=== PATIENT | male | born 1995 | race Caucasian/White ===

== ENCOUNTER 2017-01-25 01:24 | Emergency (ER) | payer OTHER ==
[2017-01-25 01:31] VITALS: BP 118/70; PULSE 84; RESP 18; TEMP 98.9
--- NOTE | 2017-01-25 01:39 | ED ---
Upper Extremity HPI - General Chief Complaint: Extremity Injury, Upper Stated Complaint: wrist pain Time Seen by Provider: 01/25/17 01:35 Source: patient, RN notes reviewed, old records reviewed Mode of arrival: ambulatory Limitations: no limitations - History of Present Illness Initial Comments: This is a 21-year-old male presents emergency department today complaining of breast left wrist pain. Patient reports that he was walking in his basement and slipped on a puddle. He reports that when he slipped on the pedal his hand flung back and hit the area of cement. He reports the pain is mainly over the ulna but also some tenderness over the distal radius. Patient reports pain with flexion and extension. He reports that the pain was somewhat achy but then it decided to wake him up at 10:30 due to the pain. Patient denies any previous injuries to the left wrist or hand. Patient is right-handed. Denies any numbness or tingling on the fingers or hand.Patient denies any recent fever , chills, shortness of breath, chest pain, back pain, abdominal pain, nausea vomiting, numbness or tingling, dysuria or hematuria, constipation or diarrhea, headaches or visual changes, or any other current symptoms Place: home - Related Data Previous Rx's Medication Instructions Recorded Ibuprofen [Motrin] 600 mg PO Q8HR PRN #20 tab 01/25/17 Allergies Allergy/AdvReac Type Severity Reaction Status Date / Time clarithromycin [From Biaxin] AdvReac Nausea & Verified 01/25/17 01:31 Vomiting Review of Systems ROS Statement: Those systems with pertinent positive or pertinent negative responses have been documented in the HPI. ROS Other: All systems not noted in ROS Statement are negative. Past Medical History Past Medical History: No Reported History History of Any Multi-Drug Resistant Organisms: None Reported Past Surgical History: No Surgical Hx Reported Past Psychological History: No Psychological Hx Reported Smoking Status: Current some day smoker Past Alcohol Use History: Rare Past Drug Use History: None Reported General Exam - General Exam Comments Initial Comments: Well-appearing 21-year-old male. No acute distress. Limitations: no limitations General appearance: alert, in no apparent distress Head exam: Present: atraumatic, normocephalic, normal inspection Eye exam: Present: normal appearance, PERRL, EOMI. Absent: scleral icterus, conjunctival injection, periorbital swelling ENT exam: Present: normal exam, mucous membranes moist Neck exam: Present: normal inspection. Absent: tenderness, meningismus, lymphadenopathy Respiratory exam: Present: normal lung sounds bilaterally. Absent: respiratory distress, wheezes, rales, rhonchi, stridor Cardiovascular Exam: Present: regular rate, normal rhythm, normal heart sounds. Absent: systolic murmur, diastolic murmur, rubs, gallop, clicks GI/Abdominal exam: Present: soft, normal bowel sounds. Absent: distended, tenderness, guarding, rebound, rigid Extremities exam: Present: normal inspection, full ROM, normal capillary refill. Absent: tenderness, pedal edema, joint swelling, calf tenderness Left Upper Arm exam: Present: normal inspection, full ROM Elbow exam: Present: normal inspection, full ROM Forearm Wrist exam: Present: tenderness (Patient has tenderness and pain over the distal ulna Shearer. Patient has difficulty with range of motion due to pain.), swelling, tenderness over anatomical snuff box. Absent: normal inspection, full ROM Hand Wrist exam: Present: tenderness. Absent: normal inspection, full ROM Neuro motor exam: Present: wrist extension intact, thumb opposition intact, thumb IP flexion intact, thumb adduction intact, fingers 2-5 abduction intact Vascular: Present: normal capillary refill Back exam: Present: normal inspection Neurological exam: Present: alert, oriented X3, CN II-XII intact Psychiatric exam: Present: normal affect, normal mood Skin exam: Present: warm, dry, intact, normal color. Absent: rash Course Vital Signs 01/25/17 01:28 Temperature 98.9 F Pulse Rate 84 Respiratory 18 Rate Blood Pressure 118/70 O2 Sat by Pulse 99 Oximetry Procedures - Orthopedic Splinting/Casting Injury #1 Side: left Upper Extremity Injury Location: wrist Upper Extremity Immobilizer: thumb spica Medical Decision Making - Medical Decision Making Well appearing 21 year old male, no acute distress. Left wrist injury after falling on water puddle. Patient reports that his left wrist hit a concrete wall and area and has pain over the distal radius and ulna and pain to the anatomical snuffbox. Patient has pain with palpation on anatomical snuff box. Patient xray is negative for any acute process. Patient placed in a thumb spica splint. Advised to follow up if symptoms persist. PAtient agrees with treatment plan and will comply. She'll be discharged with Motrin. - Radiology Data Radiology results: report reviewed Xray reviewed, negative for any acute fracture. Disposition Clinical Impression: Left wrist sprain Disposition: HOME SELF-CARE Condition: Good Instructions: Wrist Injury (ED) Additional Instructions: Patient advised to remain in splint. Follow-up with orthopedic physician of symptoms continue persist. Return to emergency department if any alarming signs or symptoms occur. Prescriptions: Ibuprofen [Motrin] 600 mg PO Q8HR PRN #20 tab PRN Reason: Pain Referrals: Enriqueta Nixon DO [Primary Care Provider] - 1-2 days Neo Disla MD [STAFF PHYSICIAN] - 1-2 days Time of Disposition: 02:07
--- NOTE | 2017-01-25 02:02 | XR ---
EXAM: XR Left Wrist Complete, 3 or More Views CLINICAL HISTORY: Reason: Pain TECHNIQUE: Frontal, lateral and oblique views of the left wrist. COMPARISON: No relevant prior studies available. FINDINGS: Bones/joints: No acute fracture. No dislocation. Soft tissues: No radiopaque foreign body. IMPRESSION: No evidence of acute fracture.
== END 2017-01-25 02:25 | disposition home or self-care (01) ==
LOC: EC 01:24
DX: S63.502A Unspecified sprain of left wrist, initial encounter (principal); F17.200 Nicotine dependence, unspecified, uncomplicated; Z88.1 Allergy status to other antibiotic agents; W16.312A Fall into other water striking water surface causing other injury, initial encounter; W01.198A Fall on same level from slipping, tripping and stumbling with subsequent striking against other object, initial encounter; Y92.89 Other specified places as the place of occurrence of the external cause; Y93.01 Activity, walking, marching and hiking
CPT/HCPCS: 29125; 99284